=== PATIENT | female | born 1995 | race Caucasian/White ===

== ENCOUNTER 2018-08-19 18:53 | Emergency (ER) | payer OTHER ==
[~2018-08-19] VITALS: Ht 162.6 cm; Wt 48.5 kg
[2018-08-20] MEDS ORDERED: KETO10TA2 PO (01:34)
[2018-08-20] MEDS ORDERED: CEFUROXIME250 MG PO (01:34)
[2018-08-20] MEDS ORDERED: TAMS0.4C PO (01:34)
== END 2018-08-20 01:50 ==
LOC: ER 18:53
DX: N23 Unspecified renal colic (principal); R10.32 Left lower quadrant pain

== ENCOUNTER 2018-08-21 22:37 | Emergency (ER) | payer OTHER ==
[~2018-08-21] VITALS: Ht 162.6 cm; Wt 47.6 kg
[~2018-08-21 22:37] MED LIST: CEFUROXIME250 MG PO; KETO10TA2 PO; TAMS0.4C PO
[2018-08-22] MEDS ORDERED: ZOFRAN ODT4 MG PO (04:41)
[2018-08-22] MEDS ORDERED: PEPCID40 MG PO (04:41)
[2018-08-22] MEDS ORDERED: CEFTIN250 MG/5 M PO (04:41)
[2018-08-22] MEDS ORDERED: CEFUROXIME250 MG PO (04:42)
== END 2018-08-22 04:45 | disposition home or self-care (01) ==
LOC: ER 22:37
DX: R11.2 Nausea with vomiting, unspecified (principal)

== ENCOUNTER 2018-10-07 22:27 | Emergency (ER) | payer OTHER ==
[~2018-10-07] VITALS: Ht 162.6 cm; Wt 47.6 kg
[~2018-10-07 22:27] MED LIST changes: +CEFTIN250 MG/5 M PO; +PEPCID40 MG PO; +ZOFRAN ODT4 MG PO
[2018-10-08] MEDS ORDERED: ORASEP SPRAY30 ML MM (02:01)
[2018-10-08] MEDS ORDERED: DUI500 PO (02:01)
== END 2018-10-08 02:08 | disposition home or self-care (01) ==
LOC: ER 22:27
DX: J03.80 Acute tonsillitis due to other specified organisms (principal)